=== PATIENT | female | born 1960 | race Caucasian/White ===

== ENCOUNTER 2018-12-30 08:03 | Inpatient (IN) | payer OTHER ==
[2018-12-30] MEDS ORDERED: ASPIRIN 325 MG TABLET PO ONE (09:45)
--- NOTE | 2018-12-30 10:03 | PDOC ---
History of Present Illness - General Chief Complaint: Chest Pain Stated Complaint: CHEST PAIN Time Seen by Provider: 12/30/18 08:58 - History of Present Illness Initial Comments: 12/30/18 09:58 58 F with h/o DM, HTN, HLD, COPD (active smoker), opiate dependence on methadone , presenting to ED with 1 day of midsternal chest pain. Pt states that she had an argument with a family member this morning. She subsequently developed a pressure-like pain in the middle of her chest. Pain is non-radiating, non- pleuritic. She does endorse worsening of the pain with activity. Denies any new leg swelling. No recent travel/immobilization. No h/o DVT/PE. Past History - Past Medical History Allergies/Adverse Reactions: Allergies Allergy/AdvReac Type Severity Reaction Status Date / Time No Known Allergies Allergy Verified 12/30/18 08:16 Home Medications: Ambulatory Orders NK [No Known Home Medication] 05/22/18 COPD: Yes Diabetes: Yes HTN: Yes Hypercholesterolemia: Yes - Surgical History Appendectomy: Yes - Suicide/Smoking/Psychosocial Hx Smoking History: Current every day smoker Have you smoked in the past 12 months: Yes Number of Cigarettes Smoked Daily: 8 Information on smoking cessation initiated: Yes Hx Alcohol Use: No Drug/Substance Use Hx: No Substance Use Type: Heroin Review of Systems - Review of Systems Comments:: 12/30/18 09:59 GENERAL/CONSTITUTIONAL: No fever or chills. No weakness. HEAD, EYES, EARS, NOSE AND THROAT: No change in vision. No ear pain or discharge. No sore throat. CARDIOVASCULAR: + chest pain, no shortness of breath, no loss of consciousness RESPIRATORY: No cough, wheezing, or hemoptysis. GASTROINTESTINAL: No nausea, vomiting, diarrhea or constipation. GENITOURINARY: No dysuria, frequency, or change in urination. MUSCULOSKELETAL: No joint or muscle swelling or pain. No neck or back pain. SKIN: No rash NEUROLOGIC: No vertigo, no change in strength/sensation. ENDOCRINE: No increased thirst. No abnormal weight change. HEMATOLOGIC/LYMPHATIC: No anemia, easy bleeding, or history of blood clots. ALLERGIC/IMMUNOLOGIC: No hives or skin allergy. *Physical Exam - Vital Signs Last Vital Signs Temp Pulse Resp BP Pulse Ox 97.5 F L 61 22 H 135/79 97 12/30/18 08:16 12/30/18 08:16 12/30/18 08:16 12/30/18 08:16 12/30/18 08:16 Heart Score/ECG Review - History History: Slightly suspicious - Electrocardiogram EKG: Non specific repolarization disturbance - Age Age: 45-65 - Risk Factors Risk Factors Heart Score: Yes Hx Hypercholesterolemia, Yes Hx Hypertension, Yes Hx Diabetes, Yes Smoking History Based on the list above the patient has:: >/=3 risk factors or Hx atherosclerotic disease - Troponin Troponin: </= normal limit - Score Heart Score - Total: 4 - ECG Impressions Comment:: 12/30/18 10:00 NSR, no NILESH/STDs, TWI in V1-V2, Q waves in V1-V3, rate 59 ED Treatment Course - LABORATORY CBC & Chemistry Diagram: 12/30/18 10:04 12/30/18 10:04 - ADDITIONAL ORDERS Additional order review: Laboratory Results 12/30/18 12/30/18 12/30/18 10:04 10:04 10:04 PT with INR 11.60 INR 0.98 PTT (Actin FS) 35.7 Sodium 138 Potassium 4.3 Chloride 102 Carbon Dioxide 32 Anion Gap 4 L BUN 14 Creatinine 0.8 Creat Clearance w eGFR 73.67 Random Glucose 117 H Calcium 8.7 Total Bilirubin 0.5 AST 27 ALT 19 Alkaline Phosphatase 110 Creatine Kinase Troponin I B-Natriuretic Peptide 65.9 Total Protein 7.2 Albumin 3.5 12/30/18 10:04 PT with INR INR PTT (Actin FS) Sodium Potassium Chloride Carbon Dioxide Anion Gap BUN Creatinine Creat Clearance w eGFR Random Glucose Calcium Total Bilirubin AST ALT Alkaline Phosphatase Creatine Kinase 142 Troponin I 0.03 B-Natriuretic Peptide Total Protein Albumin 12/30/18 10:04 RBC 4.39 MCV 96.0 MCHC 34.8 RDW 12.6 MPV 8.4 Neutrophils % 51.1 Lymphocytes % 38.0 Monocytes % 7.8 Eosinophils % 2.3 Basophils % 0.8 - RADIOLOGY Radiology Studies Ordered: Category Date Time Status CHEST PA & LAT [RAD] Stat Radiology 12/30/18 09:43 Completed - Medications Given in the ED: ED Medications Discontinued Medications Generic Name Dose Route Start Last Admin Trade Name Freq PRN Reason Stop Dose Admin Aspirin 325 mg 12/30/18 09:45 03/26/19 10:23 Asa - PO 12/30/18 09:46 325 mg ONCE ONE Administration Medical Decision Making - Medical Decision Making 12/30/18 10:03 58 F with exertional chest pain. EKG shows septal Q waves and TWIs. No risk factors or clinical signs of DVT/PE. Equal pulses, low suspicion for dissection. - Labs, serial trops - CXR - Aspirin 12/30/18 11:03 Labs wnl CXR clear First trop negative Will admit tele obs for ACS r/o 12/30/18 11:16 Pt admitted to hospitalist *DC/Admit/Observation/Transfer Diagnosis at time of Disposition: Chest pain - Discharge Dispostion Decision to Admit order: Yes - Referrals Referrals: Sol Denney MD [Primary Care Provider] - - Patient Instructions - Post Discharge Activity - Attestations Physician Attestion: 12/30/18 11:17 I, Dr. Faizan Vivas MD, attest that this document has been prepared under my direction and personally reviewed by me in its entirety. I further attest, that it accurately reflects all work, treatment, procedures and medical decision -making performed by me.
[2018-12-30 10:12] LABS: BASO % 0.8 % (0-2.0); EOS % 2.3 % (0-4.5); HEMATOCRIT 42.1 % (32.4-45.2); HEMOGLOBIN 14.6 GM/dL (10.7-15.3); MCH 33.4 pg (25.7-33.7); MCHC 34.8 g/dl (32.0-36.0); MEAN PLT VOLUME 8.4 fl (7.5-11.1); MONO % 7.8 % (3.8-10.2); NEUT % 51.1 % (42.8-82.8); PLATELET COUNT 148 K/MM3 (134-434); RBC 4.39 M/mm3 (3.60-5.2); RDW 12.6 % (11.6-15.6); WHITE BLOOD COUNT 5.3 K/mm3 (4.0-10.0)
[2018-12-30] MEDS ORDERED: ASPIRIN 325 MG TABLET ONE (10:16)
[2018-12-30 10:26] LABS: INR 0.98 (0.83-1.09); PROTHROMBIN TIME (PATIENT) 11.6 SEC (9.7-13.0)
[2018-12-30 10:28] LABS: ACTIVATED PTT 35.7 SECONDS (25.2-36.5)
[2018-12-30 10:48] LABS: ALBUMIN 3.5 g/dl (3.4-5.0); ALK PHOS 110 U/L (45-117); ANION GAP 4 MMOL/L (8-16); BILIRUBIN,TOTAL 0.5 mg/dL (0.2-1); BLOOD UREA NITROGEN 14 mg/dL (7-18); CALCIUM 8.7 mg/dL (8.5-10.1); CHLORIDE 102 mmol/L (98-107); CO2 32 mmol/L (21-32); CREATININE 0.8 mg/dL (0.55-1.3); GLUCOSE,RANDOM 117 mg/dL (74-106); POTASSIUM 4.3 mmol/L (3.5-5.1); SGOT/AST 27 U/L (15-37); SGPT/ALT 19 U/L (13-61); SODIUM 138 mmol/L (136-145); TOT PROT 7.2 g/dl (6.4-8.2)
--- NOTE | 2018-12-30 11:23 | HP ---
CHIEF COMPLAINT:chest pain. PCP: HISTORY OF PRESENT ILLNESS: 58 yo F with PMhx of HTN, HLD, DM 2, and current smoker presents to ER with chest pain. She describes intermittent non-radiating substernal chest pain that lasted for about and hour and resolved on its own. At the time of chest pain she was arguing with her and was worsened with activity. She does not have history of CA or stress test in past. She saw a play writer several years ago but can not recall the name.Pain was not associated with diaphoresis. Never had this pain before this episode. She was previously on insulin for her DM but has not taken any medication for it for over a year because she states that her A1c returned to normal. She was also previously on Lisinopril and Lipitor but also has not taken them in over a year. At this time she denies CP, ARMAS,SOB, palpitations, abdominal pain, nausea or vomiting. ER course was notable for: (1)ASA 325 given. (2)EKG showed NSR, no NILESH/STDs, TWI in V1-V2, Q waves in V1-V3, rate 59 (3)Troponin I (-) x 1 Recent Travel: Denies PAST MEDICAL HISTORY: HTN, HLD, DM 2, and current smoker PAST SURGICAL HISTORY: appendectomy Social History: Smokin-10 cigs/day Alcohol:denies Drugs: denies Family History: NO histrory of sudden cardiac in family. Allergies No Known Allergies Allergy (Verified 12/30/18 08:16) HOME MEDICATIONS: Home Medications Medication Instructions Recorded NK [No Known Home Medication] 05/22/18 REVIEW OF SYSTEMS CONSTITUTIONAL: Absent: fever, chills, diaphoresis, generalized weakness, malaise, loss of appetite, weight change HEENT: Absent: rhinorrhea, nasal congestion, throat pain, throat swelling, difficulty swallowing, mouth swelling, ear pain, eye pain, visual changes CARDIOVASCULAR: chest pain Absent: , syncope, palpitations, irregular heart rate, lightheadedness, peripheral edema RESPIRATORY: Absent: cough, shortness of breath, dyspnea with exertion, orthopnea, wheezing, stridor, hemoptysis GASTROINTESTINAL: Absent: abdominal pain, abdominal distension, nausea, vomiting, diarrhea, constipation, melena, hematochezia GENITOURINARY: Absent: dysuria, frequency, urgency, hesitancy, hematuria, flank pain, genital pain MUSCULOSKELETAL: Absent: myalgia, arthralgia, joint swelling, back pain, neck pain SKIN: Absent: rash, itching, pallor HEMATOLOGIC/IMMUNOLOGIC: Absent: easy bleeding, easy bruising, lymphadenopathy, frequent infections ENDOCRINE: Absent: unexplained weight gain, unexplained weight loss, heat intolerance, cold intolerance NEUROLOGIC: Absent: headache, focal weakness or paresthesias, dizziness, unsteady gait, seizure, mental status changes, bladder or bowel incontinence PSYCHIATRIC: Absent: anxiety, depression, suicidal or homicidal ideation, hallucinations. PHYSICAL EXAMINATION Vital Signs - 24 hr 12/30/18 08:16 Temperature 97.5 F L Pulse Rate 61 Respiratory 22 H Rate Blood Pressure 135/79 O2 Sat by Pulse 97 Oximetry (%) GENERAL: AAOx3 NAD HEAD: NCAT EYES: PERRLA, EOMI, sclera anicteric, conjunctiva clear. No lid lag. EARS, NOSE, THROAT: Moist mucous membranes. NECK: nl ROM supple without lymphadenopathy, JVD, or masses. LUNGS: CTAB. No wheezes, and no crackles. No accessory muscle use. HEART: RRR, normal S1 and S2 without murmur, rub or gallop. ABDOMEN: Soft,obese, nontender, not distended, normoactive bowel sounds, no guarding, no rebound, no masses. No hepatomegaly or splenomegaly. MUSCULOSKELETAL: Normal range of motion at all joints. No bony deformities or tenderness. No CVA tenderness. LOWER EXTREMITIES: 2+ pulses, warm, well-perfused. No calf tenderness. No peripheral edema. NEUROLOGICAL: Cranial nerves II-XII intact. Normal speech. PSYCHIATRIC: Cooperative. Good eye contact. Appropriate mood and affect. SKIN: Warm, dry, normal turgor, no rashes or lesions noted, normal capillary refill. Laboratory Results - last 24 hr 12/30/18 12/30/18 12/30/18 10:04 10:04 10:04 WBC 5.3 RBC 4.39 Hgb 14.6 Hct 42.1 MCV 96.0 MCH 33.4 MCHC 34.8 RDW 12.6 Plt Count 148 MPV 8.4 Absolute Neuts (auto) 2.7 Neutrophils % 51.1 Lymphocytes % 38.0 Monocytes % 7.8 Eosinophils % 2.3 Basophils % 0.8 Nucleated RBC % 0 PT with INR 11.60 INR 0.98 PTT (Actin FS) 35.7 Sodium Potassium Chloride Carbon Dioxide Anion Gap BUN Creatinine Creat Clearance w eGFR Random Glucose Calcium Total Bilirubin AST ALT Alkaline Phosphatase Creatine Kinase 142 Troponin I 0.03 B-Natriuretic Peptide Total Protein Albumin 12/30/18 12/30/18 10:04 10:04 WBC RBC Hgb Hct MCV MCH MCHC RDW Plt Count MPV Absolute Neuts (auto) Neutrophils % Lymphocytes % Monocytes % Eosinophils % Basophils % Nucleated RBC % PT with INR INR PTT (Actin FS) Sodium 138 Potassium 4.3 Chloride 102 Carbon Dioxide 32 Anion Gap 4 L BUN 14 Creatinine 0.8 Creat Clearance w eGFR 73.67 Random Glucose 117 H Calcium 8.7 Total Bilirubin 0.5 AST 27 ALT 19 Alkaline Phosphatase 110 Creatine Kinase Troponin I B-Natriuretic Peptide 65.9 Total Protein 7.2 Albumin 3.5 ASSESSMENT/PLAN: 58 yo F with PMhx of HTN, HLD, DM 2, and current smoker presents to ER with chest pain placed on observation for rule out ACS. Problem List - Problem (1) Chest pain Assessment/Plan: intermediate pre-test probability. * Place on observation * Trend trops * Cardiology consult * Echo pending. * nuclear stress test. * consider BB (2) HTN (hypertension) Assessment/Plan: she was previously on Lisinopril 5mg PO daily. (3) HLD (hyperlipidemia) Assessment/Plan: Restart Statin * Lipid profile sent. (4) DM type 2 (diabetes mellitus, type 2) Assessment/Plan: She was previously on insulin . * No current home meds. * ADA diet * BGM TIDAC * ISS TIDAC * diabetic counseling. * HgbA1C (5) Tobacco use Assessment/Plan: Nicoderm patch. * Counseled on importance of smoking cessation. * given different option to help quit. (6) DVT prophylaxis Assessment/Plan: Lovenox 40 mg SQ daily Visit type - Emergency Visit Emergency Visit: Yes ED Registration Date: 12/30/18 Care time: The patient presented to the Emergency Department on the above date and was hospitalized for further evaluation of their emergent condition. - New Patient This patient is new to me today: Yes Date on this admission: 12/31/18 - Critical Care Critical Care patient: No
[2018-12-30 13:30] LABS: CHOLESTEROL 187 mg/dL (50-200); HDL CHOLESTEROL 70 mg/dL (40-60); TRIGLYCERIDES 79 mg/dL (0-150)
--- NOTE | 2018-12-30 16:13 | ECHO ---
Name: DARIEN NOVA Exam:Adult Echocardiogram Study Date: 12/30/2018 02:22 PM Age: 58 yrs Reason For Study: LV Function Height: 69 in Weight: 247 lb BSA: 2.3 m2 MMode/2D Measurements & Calculations IVSd: 0.80 cm Ao root diam: 3.1 cm LVIDd: 5.1 cm LA dimension: 3.7 cm LVIDs: 3.7 cm LVPWd: 0.82 cm EDV(Teich): 121.7 ml LVOT diam: 2.2 cm ESV(Teich): 59.8 ml TAPSE: 2.7 cm Doppler Measurements & Calculations MV E max maxwell: 63.2 cm/sec Ao V2 max: 123.4 cm/sec MV A max maxwell: 80.0 cm/sec Ao max P.1 mmHg MV E/A: 0.79 Ao V2 mean: 92.5 cm/sec MV dec time: 0.26 sec Ao mean P.7 mmHg Ao V2 VTI: 29.3 cm SHIV(I,D): 1.9 cm2 SHIV(V,D): 2.3 cm2 LV V1 max P.2 mmHg SV(LVOT): 56.4 ml LV V1 mean P.99 mmHg LV V1 max: 73.4 cm/sec LV V1 mean: 46.9 cm/sec LV V1 VTI: 14.7 cm TR max maxwell: 205.0 cm/sec Med Peak E' Maxwell: 6.3 cm/sec TR max P.8 mmHg Med E/e': 10.0 Lat Peak E' Maxwell: 11.2 cm/sec Lat E/e': 5.6 Procedure The study was technically difficult with many images being suboptimal in quality. Left Ventricle The left ventricle is grossly normal size. Left ventricular systolic function is grossly normal. E/A reversal consistent with but not diagnostic of poor LV compliance. Right Ventricle The right ventricle is grossly normal size. The right ventricular systolic function is grossly normal . Atria Normal left and right atrial size and function. Mitral Valve There is mild mitral annular calcification. Tricuspid Valve The tricuspid valve is not well visualized. Aortic Valve There is moderate aortic sclerosis.;. Mild valvular aortic stenosis. The calculated aortic valve area using the continuity equation is 1.9 cm2. The peak gradient is 6.1 mmHg and mean gradient is 3.7 mmHg. Pulmonic Valve The pulmonic valve is not well visualized. Great Vessels The aortic root is normal size. Pericardium/Pleura There is no pericardial effusion. Interpretation Summary The study was technically difficult with many images being suboptimal in quality. The left ventricle is grossly normal size. Left ventricular systolic function is grossly normal. The right ventricle is grossly normal size. The right ventricular systolic function is grossly normal . Normal left and right atrial size and function. There is moderate aortic sclerosis.; Mild valvular aortic stenosis. The calculated aortic valve area using the continuity equation is 1.9 cm2. The peak gradient is 6.1 mmHg and mean gradient is 3.7 mmHg. There is mild mitral annular calcification. MD Danae Lewis 12/30/2018 04:12 PM
[2018-12-30] MEDS ORDERED: INSULIN SLIDING SCALE (NOVOLOG) 1 VIAL SQ SCH (16:30)
[2018-12-30] MEDS: INSULIN SLIDING SCALE (NOVOLOG) 1 VIAL SQ SCH (17:14)
--- NOTE | 2018-12-30 18:20 | PN ---
Teaching Attending Note Name of Resident: Armando Haynes ATTENDING PHYSICIAN STATEMENT I saw and evaluated the patient. I reviewed the resident's note and discussed the case with the resident. I agree with the resident's findings and plan as documented. SUBJECTIVE: This is a 58 year old woman with a history of HTN, hyperlipidemia, type 2 DM who comes to the ED complaining of chest pain. The pain started while arguing with her . It was worse with activity. It was substernal, did not radiate, and was not associated with SOB, diaphoresis, palpitations. She reports that it was intermittent over about an hour. It resolved spontaneously. She reports that she has been off all of her meds for over a year. OBJECTIVE: Vital Signs Period Temp Pulse Resp BP Sys/Ayoub Pulse Ox Last 24 Hr 97.5 F 61-71 18-22 132-135/74-79 97-99 HEART: S1S2, RRR LUNGS: Clear ABDOMEN: Obese, soft, non-tender, non-distended, normal BS EXTREMITIES: No edema Laboratory Tests 12/30/18 12/30/18 12/30/18 10:00 10:04 10:04 WBC 5.3 RBC 4.39 Hgb 14.6 Hct 42.1 MCV 96.0 MCH 33.4 MCHC 34.8 RDW 12.6 Plt Count 148 MPV 8.4 Absolute Neuts (auto) 2.7 Neutrophils % 51.1 Lymphocytes % 38.0 Monocytes % 7.8 Eosinophils % 2.3 Basophils % 0.8 Nucleated RBC % 0 PT with INR INR PTT (Actin FS) Sodium Potassium Chloride Carbon Dioxide Anion Gap BUN Creatinine Creat Clearance w eGFR Random Glucose Hemoglobin A1c % 5.8 Calcium Total Bilirubin AST ALT Alkaline Phosphatase Creatine Kinase 142 Troponin I 0.03 B-Natriuretic Peptide Total Protein Albumin Triglycerides Cholesterol Total LDL Cholesterol HDL Cholesterol 12/30/18 12/30/18 12/30/18 10:04 10:04 10:04 WBC RBC Hgb Hct MCV MCH MCHC RDW Plt Count MPV Absolute Neuts (auto) Neutrophils % Lymphocytes % Monocytes % Eosinophils % Basophils % Nucleated RBC % PT with INR 11.60 INR 0.98 PTT (Actin FS) 35.7 Sodium 138 Potassium 4.3 Chloride 102 Carbon Dioxide 32 Anion Gap 4 L BUN 14 Creatinine 0.8 Creat Clearance w eGFR 73.67 Random Glucose 117 H Hemoglobin A1c % Calcium 8.7 Total Bilirubin 0.5 AST 27 ALT 19 Alkaline Phosphatase 110 Creatine Kinase Troponin I B-Natriuretic Peptide 65.9 Total Protein 7.2 Albumin 3.5 Triglycerides 79 Cholesterol 187 Total LDL Cholesterol 103 H HDL Cholesterol 70 H 12/30/18 17:00 WBC RBC Hgb Hct MCV MCH MCHC RDW Plt Count MPV Absolute Neuts (auto) Neutrophils % Lymphocytes % Monocytes % Eosinophils % Basophils % Nucleated RBC % PT with INR INR PTT (Actin FS) Sodium Potassium Chloride Carbon Dioxide Anion Gap BUN Creatinine Creat Clearance w eGFR Random Glucose Hemoglobin A1c % Calcium Total Bilirubin AST ALT Alkaline Phosphatase Creatine Kinase Troponin I 0.33 H B-Natriuretic Peptide Total Protein Albumin Triglycerides Cholesterol Total LDL Cholesterol HDL Cholesterol Home Medications Medication Instructions Recorded NK [No Known Home Medication] 05/22/18 ASSESSMENT AND PLAN: This is a 58 year old woman with a history of HTN, hyperlipidemia, type 2 DM who presented to the ED with chest pain. 1. Chest pain - Patient has multiple risk factors - Observe on telemetry - Start aspirin, Lipitor - Serial troponins - Echocardiogram - Cardiology consult - Stress test 2. HTN - Restart lisinopril 3. Hyperlipidemia - Check lipid profile - Start Lipitor 4. Type 2 DM - Check HgbA1c - Fingersticks with Novolog sliding scale - Restart lisinopril 5. Nicotine dependence - Nicotine patch 6. Obesity with BMI 36.5
[2018-12-30] MEDS ORDERED: ATORVASTATIN CA 10 MG TABLET (FP) ONE (21:19)
--- NOTE | 2018-12-30 21:45 | CON.CARD ---
Consult Consult Specialty:: cardiology Reason for Consultation:: chest pain - History of Present Illness Chief Complaint: Pt A&Ox3; had chest pressure for more than an hour, but is now asymptomatic. History of Present Illness: 58 F with h/o DM, HTN, HLD, COPD (active smoker), opiate dependence on methadone , headaches, obesity, sedentary lifestyle, presenting to ED with 1 day of midsternal chest pain. Pt states that she had an argument with a family member this morning. She subsequently developed a moderate pressure-like pain in the middle of her chest. Pain is non-radiating, non-pleuritic. She does endorse worsening of the pain with activity. Denies any new leg swelling. No recent travel/immobilization. No h/o DVT/PE. Pt says she had DM, HTN, and hyperlipidemia in the past, but has been able to come off all medications. - History Source History Provided By: Patient, Medical Record Limitations to Obtaining History: No Limitations - Past Medical History Cardio/Vascular: Yes: HTN, Hyperlipdemia Reproductive: Yes: Postmenopausal ...: No - Alcohol/Substance Use Hx Alcohol Use: No - Smoking History Smoking history: Current every day smoker Have you smoked in the past 12 months: Yes Aproximately how many cigarettes per day: 8 Home Medications - Allergies Allergies/Adverse Reactions: Allergies Allergy/AdvReac Type Severity Reaction Status Date / Time No Known Allergies Allergy Verified 12/30/18 08:16 - Home Medications Home Medications: Ambulatory Orders Methadone [Dolophine -] 120 mg PO DAILY 12/30/18 Family Disease History - Family Disease History Family History: Denies Review of Systems - Review of Systems Constitutional: reports: No Symptoms Eyes: reports: No Symptoms HENT: reports: No Symptoms Neck: reports: No Symptoms Cardiovascular: reports: Chest Pain Respiratory: reports: No Symptoms Gastrointestinal: reports: No Symptoms Genitourinary: reports: No Symptoms Breasts: reports: No Symptoms Reported Musculoskeletal: reports: No Symptoms Integumentary: reports: No Symptoms Neurological: reports: No Symptoms Endocrine: reports: No Symptoms Hematology/Lymphatic: reports: No Symptoms Psychiatric: reports: No Symptoms - Risk Factors Known Risk Factors: Yes: Age, Hypercholesterolemia, Hypertension, Physical Inactivity, Other (obesity) Vital Signs: Vital Signs Temperature 98 F 12/30/18 19:39 Pulse Rate 68 12/30/18 19:39 Respiratory Rate 18 12/30/18 19:39 Blood Pressure 121/74 12/30/18 19:39 O2 Sat by Pulse Oximetry (%) 100 12/30/18 19:39 - Other Data Labs, Other Data: CBC, BMP 12/30/18 10:04 12/30/18 10:04 INR, PTT INR 0.98 (0.83-1.09) 12/30/18 10:04 Troponin, BNP 12/30/18 12/30/18 12/30/18 10:04 10:04 17:00 Troponin I 0.03 0.33 H B-Natriuretic Peptide 65.9 Troponin, BNP 12/30/18 12/30/18 12/30/18 10:04 10:04 17:00 Troponin I 0.03 0.33 H B-Natriuretic Peptide 65.9 Ejection Fraction %: LVEF > or = 40 % Imaging - Results Chest X-ray: Image Reviewed EKG: Pending, Image Reviewed (sinus bradycardia; cannot r/o septal infarct) Problem List - Problems (1) Obesity Assessment/Plan: Pt has been changing diet, and says her blood sugar and BP have improved, but has not lost much weight. She did weigh 140 lbs at 20 yrs old. Code(s): E66.9 - OBESITY, UNSPECIFIED (2) Sedentary lifestyle Code(s): Z91.89 - OT PERSONAL RISK FACTORS, NOT ELSEWHERE CLASSIFIED (3) [place] cardiac risk >20% in next 10 years Assessment/Plan: F/u tNI and EKGs serially. If CK does not increase significantly, will do stress MIBI in am. Addendum: TNI noted to increase from 0.03 to 0.3 within seven hours. Await next level; if increasing, will add IV heparin or lovenox; stress MIBI may need to be canceled. 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
[2018-12-30] MEDS ORDERED: ATORVASTATIN CA 10 MG TABLET (FP) PO SCH (22:00)
--- NOTE | 2018-12-30 22:02 | EKG ---
Test Reason : Blood Pressure : / mmHG Vent. Rate : 059 BPM Atrial Rate : 059 BPM P-R Int : 124 ms QRS Dur : 094 ms QT Int : 478 ms P-R-T Axes : 038 019 062 degrees QTc Int : 473 ms POOR DATA QUALITY, INTERPRETATION MAY BE ADVERSELY AFFECTED SINUS BRADYCARDIA WITH OCCASIONAL PREMATURE VENTRICULAR COMPLEXES LOW VOLTAGE QRS CANNOT RULE OUT ANTERIOR INFARCT , AGE UNDETERMINED ABNORMAL ECG NO PREVIOUS ECGS AVAILABLE Confirmed by MD CARI, DEBBIE ([id number]) on 12/30/2018 10:01:41 PM Referred By: Confirmed By:DEBBIE ALCALA MD
[2018-12-31] MEDS ORDERED: ENOXAPARIN NA (PORCINE) 100 MG/1 ML DISP.SYRIN SQ ONE (00:06)
[2018-12-31] MEDS ORDERED: ENOXAPARIN NA (PORCINE) 30 MG/0.3 ML DISP.SYRIN SQ ONE (00:08)
[2018-12-31] MEDS: ENOXAPARIN NA (PORCINE) 120 MG/0.8 ML DISP.SYRIN SQ SCH ×3 (00:34→21:20)
[2018-12-31 05:53] LABS: BASO % 0.8 % (0-2.0); EOS % 2.8 % (0-4.5); HEMATOCRIT 40.4 % (32.4-45.2); HEMOGLOBIN 13.9 GM/dL (10.7-15.3); LYMPH % 40.6 % (8-40); MCH 32.6 pg (25.7-33.7); MCHC 34.3 g/dl (32.0-36.0); MEAN CELL VOLUME 94.9 fl (80-96); MEAN PLT VOLUME 8.5 fl (7.5-11.1); MONO % 6.6 % (3.8-10.2); NEUT % 49.2 % (42.8-82.8); PLATELET COUNT 149 K/MM3 (134-434); RBC 4.25 M/mm3 (3.60-5.2); RDW 12.8 % (11.6-15.6); WHITE BLOOD COUNT 5.4 K/mm3 (4.0-10.0)
[2018-12-31 06:14] LABS: ALBUMIN 3.3 g/dl (3.4-5.0); ALK PHOS 94 U/L (45-117); ANION GAP 4 MMOL/L (8-16); BILIRUBIN,TOTAL 0.6 mg/dL (0.2-1); BLOOD UREA NITROGEN 15 mg/dL (7-18); CALCIUM 8.6 mg/dL (8.5-10.1); CHLORIDE 105 mmol/L (98-107); CO2 29 mmol/L (21-32); CREATININE 0.8 mg/dL (0.55-1.3); GLUCOSE,RANDOM 94 mg/dL (74-106); MAGNESIUM 2.2 mg/dL (1.8-2.4); PHOSPHOROUS 3.8 mg/dL (2.5-4.9); POTASSIUM 3.9 mmol/L (3.5-5.1); SGOT/AST 24 U/L (15-37); SGPT/ALT 18 U/L (13-61); SODIUM 138 mmol/L (136-145); TOT PROT 6.8 g/dl (6.4-8.2)
[2018-12-31] MEDS: INSULIN SLIDING SCALE (NOVOLOG) 1 VIAL SQ SCH ×3 (06:34→16:53)
--- NOTE | 2018-12-31 08:16 | PN ---
Progress Note, Physician History of Present Illness: 58 F with h/o DM, HTN, HLD, COPD (active smoker), opiate dependence on methadone , obesity, sedentary lifestyle, presenting to ED with 1 day of midsternal chest pain. Pt states that she had an argument with a family member this morning. She subsequently developed a moderate pressure-like pain in the middle of her chest. Pain is non-radiating, non-pleuritic. She does endorse worsening of the pain with activity. Denies any new leg swelling. No recent travel/ immobilization. No h/o DVT/PE. Pt says she had DM, HTN, and hyperlipidemia in the past, but has been able to come off all medications. - Current Medication List Current Medications: Active Medications Aspirin (Asa -) 81 mg PO DAILY [facility] Atorvastatin Calcium (Lipitor -) 10 mg PO HS [facility] Last Admin: 12/30/18 22:26 Dose: 10 mg Enoxaparin Sodium (Lovenox -) 110 mg SQ BID [facility] Last Admin: 12/31/18 00:34 Dose: 110 mg Insulin Aspart (Novolog Vial Sliding Scale -) 1 vial SQ TIDAC [facility]; Protocol Last Admin: 12/31/18 06:34 Dose: Not Given Lisinopril (Prinivil) 5 mg PO DAILY [facility] Nicotine (Nicoderm Patch -) 21 mg TD DAILY [facility] - Objective Vital Signs: Vital Signs Temperature 97.4 F L 12/31/18 05:00 Pulse Rate 75 12/31/18 05:00 Respiratory Rate 20 12/31/18 05:00 Blood Pressure 119/72 12/31/18 05:00 O2 Sat by Pulse Oximetry (%) 100 12/30/18 19:39 Labs: CBC, BMP 12/31/18 05:40 12/31/18 05:25 INR, PTT INR 0.98 (0.83-1.09) 12/30/18 10:04 Assessment/Plan Problems (1) Obesity Assessment/Plan: Pt has been changing diet, and says her blood sugar and BP have improved, but has not lost much weight. She did weigh 140 lbs at 20 yrs old. Code(s): E66.9 - OBESITY, UNSPECIFIED (2) Sedentary lifestyle Code(s): Z91.89 - OTH PERSONAL RISK FACTORS, NOT ELSEWHERE CLASSIFIED (3) [place] cardiac risk >20% in next 10 years Assessment/Plan: nonstemi cont lovenox and asa, add plavix 300 loading than 75 QD and BB will need c. cath Addendum: TNI noted to increase from 0.03 to 0.3 within seven hours. Await next level; if increasing, will add IV heparin or lovenox; stress MIBI may need to be canceled. 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
[2018-12-31] MEDS ORDERED: CLOPIDOGREL BISULFATE 300 MG TABLET PO ONE (08:30)
[2018-12-31] MEDS ORDERED: CLOPIDOGREL BISULFATE 300 MG TABLET ONE (08:33)
[2018-12-31] MEDS ORDERED: ACETAMINOPHEN 325 MG TABLET (FP) PO PRN (08:34)
[2018-12-31] MEDS ORDERED: ACETAMINOPHEN 325 MG TABLET (FP) ONE (08:57)
[2018-12-31] MEDS ORDERED: methylPREDNISolone NA SUCC 125 MG/2 ML VIAL ONE (09:27)
[2018-12-31] MEDS: ASPIRIN 81 MG CHEWABLE TABLETS PO SCH (09:37)
[2018-12-31] MEDS: NICOTINE 21 MG/24 HOURS TOPICAL PATCH TD SCH (09:38)
[2018-12-31] MEDS: LISINOPRIL 5 MG TABLET (FP) PO SCH (09:38)
[2018-12-31] MEDS ORDERED: ENOXAPARIN NA (PORCINE) 40 MG/0.4 ML DISP.SYRIN SQ SCH (10:00)
[2018-12-31] MEDS ORDERED: METOPROLOL TARTRATE 25 MG TABLET (FP) ONE (10:11)
[2018-12-31] MEDS: METOPROLOL TARTRATE 25 MG TABLET (FP) PO SCH ×2 (10:13→21:19)
--- NOTE | 2018-12-31 10:39 | EKG ---
Test Reason : Blood Pressure : / mmHG Vent. Rate : 069 BPM Atrial Rate : 069 BPM P-R Int : 164 ms QRS Dur : 098 ms QT Int : 458 ms P-R-T Axes : 048 010 069 degrees QTc Int : 490 ms NORMAL SINUS RHYTHM LOW VOLTAGE QRS PROLONGED QT ABNORMAL ECG WHEN COMPARED WITH ECG OF 30-DEC-2018 08:03, PREMATURE VENTRICULAR COMPLEXES ARE NO LONGER PRESENT Confirmed by YULIANA TOM, MARCIN ([id number]) on 12/31/2018 10:39:25 AM Referred By: Romel LEDESMA Confirmed By:MARCIN BRIDGES MD
[2018-12-31 13:09] VITALS: BMI 38.0
--- NOTE | 2018-12-31 13:33 | PN ---
Progress Note, Physician History of Present Illness: 24 HR EVENTS: -pt admitted for NSTEMI, with elevated trop -Trop 0.33>>0.46>>0.20 -pt remains chest pain free - Current Medication List Current Medications: Active Medications Acetaminophen (Tylenol -) 650 mg PO QID PRN PRN Reason: HEADACHE Last Admin: 12/31/18 09:10 Dose: 650 mg Aspirin (Asa -) 81 mg PO DAILY [facility] Last Admin: 12/31/18 09:37 Dose: 81 mg Atorvastatin Calcium (Lipitor -) 80 mg PO [facility] Clopidogrel Bisulfate (Plavix -) 75 mg PO NOW ONE Stop: 01/01/19 10:01 Enoxaparin Sodium (Lovenox -) 110 mg SQ BID [facility] Last Admin: 12/31/18 10:12 Dose: Not Given Insulin Aspart (Novolog Vial Sliding Scale -) 1 vial SQ TIDAC [facility]; Protocol Last Admin: 12/31/18 11:49 Dose: Not Given Lisinopril (Prinivil) 5 mg PO DAILY [facility] Last Admin: 12/31/18 09:38 Dose: 5 mg Metoprolol Tartrate (Lopressor -) 25 mg PO BID [facility] Last Admin: 12/31/18 10:13 Dose: 25 mg Nicotine (Nicoderm Patch -) 21 mg TD DAILY [facility] Last Admin: 12/31/18 09:38 Dose: 21 mg - Objective Vital Signs: Vital Signs Temperature 97.6 F 12/31/18 12:58 Pulse Rate 65 12/31/18 12:58 Respiratory Rate 18 12/31/18 12:58 Blood Pressure 108/66 12/31/18 12:58 O2 Sat by Pulse Oximetry (%) 100 12/30/18 19:39 Constitutional: Yes: Well Nourished, No Distress, Calm, Obese Eyes: Yes: Conjunctiva Clear, PERRL HENT: Yes: Atraumatic, Normocephalic Neck: Yes: Supple, Trachea Midline Cardiovascular: Yes: Regular Rate and Rhythm Respiratory: Yes: Regular, CTA Bilaterally Gastrointestinal: Yes: Normal Bowel Sounds, Soft, Abdomen, Obese ...Rectal Exam: Yes: Deferred Genitourinary: Yes: WNL Breast(s): Yes: WNL Musculoskeletal: Yes: WNL Extremities: Yes: WNL Edema: No Peripheral Pulses WNL: Yes Peripheral Pulses: Left Radial: 2+, Right Radial: 2+, Left Doralis Pedis: 2+, Right Dorsalis Pedis: 2+ Integumentary: Yes: WNL Neurological: Yes: Alert, Oriented ...Motor Strength: WNL Psychiatric: Yes: Alert, Oriented Labs: CBC, BMP 12/31/18 05:40 12/31/18 05:25 INR, PTT INR 0.98 (0.83-1.09) 12/30/18 10:04 TCHOL 168 LDL 100 HDL 64 TRIG 75 CK_MB 3.0 - ....Imaging Other: Report Reviewed (ECHO 12/30/2018 Impression: Suboptimal images. LV grossly normal, LV systolic function is normal. RV is grossly normal and RV systolic fxn is groslly normal. There is moderate aortic sclerosis, mild valvular aortic stenosis. Mild mitral annular calcification. Reported by Joshua Fink MD) Problem List - Problems (1) NSTEMI (non-ST elevated myocardial infarction) Assessment/Plan: Trend cardiac enzymes daily EKGs cardiology following, recommendations appreciated due to risk factors in the setting of trop leak, pt may benefit from cardiac cath lipitor increased to 80mg ASA 81mg Lovenox 110mg BID Metoprolol 25mg BID Code(s): I21.4 - NON-ST ELEVATION (NSTEMI) MYOCARDIAL INFARCTION (2) Prophylactic measure Assessment/Plan: pt ambulatory--OOB to chair continue lovenox bowel regimen with senna and colace Melatonin PRN insomnia APAP PRN fever Oxycodone PRN headache Code(s): Z29.9 - ENCOUNTER FOR PROPHYLACTIC MEASURES, UNSPECIFIED (3) DM type 2 (diabetes mellitus, type 2) Assessment/Plan: insulin SS cardiac-diabetic diet Code(s): E11.9 - TYPE 2 DIABETES MELLITUS WITHOUT COMPLICATIONS Qualifiers: Diabetes mellitus fci insulin use: with fci use Diabetes mellitus complication status: with unspecified complications Qualified Code(s) : E11.8 - Type 2 diabetes mellitus with unspecified complications; 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 (4) HLD (hyperlipidemia) Assessment/Plan: continue statin and ASA Code(s): E78.5 - HYPERLIPIDEMIA, UNSPECIFIED Qualifiers: Hyperlipidemia type: unspecified Qualified Code(s): E78.5 - Hyperlipidemia , unspecified (5) HTN (hypertension) Assessment/Plan: continue BB If pt going to cardiac cath, AM dose of ACEi should be held Code(s): I10 - ESSENTIAL (PRIMARY) HYPERTENSION Qualifiers: Hypertension type: essential hypertension Qualified Code(s): I10 - Essential (primary) hypertension (6) Tobacco dependence Assessment/Plan: nicoderm patch 21mg daily Code(s): F17.200 - NICOTINE DEPENDENCE, UNSPECIFIED, UNCOMPLICATED Impression/Plan Impression/Plan: DISPO: Full code Visit type - Emergency Visit Emergency Visit: Yes ED Registration Date: 12/30/18 Care time: The patient presented to the Emergency Department on the above date and was hospitalized for further evaluation of their emergent condition. - New Patient This patient is new to me today: Yes Date on this admission: 12/31/18 - Critical Care Critical Care patient: No - Discharge Referral Referred to [facility] Med P.C.: No
[2018-12-31] MEDS ORDERED: oxyCODONE HCL 5 MG TABLET PO PRN (14:40)
[2018-12-31] MEDS ORDERED: PT OWN MED DRAWER 7, Y5N ONE (15:22)
[2018-12-31] MEDS ORDERED: ACETAMINOPHEN/CAFFEINE/BUTALBITAL 1 TAB PO ONE (17:37)
[2018-12-31] MEDS ORDERED: MELATONIN 5 MG TABLETS PO PRN (22:00)
[2018-12-31] MEDS ORDERED: DOCUSATE SODIUM 100 MG CAPSULE (FP) PO PRN (22:00)
[2018-12-31] MEDS ORDERED: ATORVASTATIN CA 80 MG TABLET (FP) PO SCH (22:00)
[2018-12-31] MEDS ORDERED: SENNOSIDES 8.6MG TABLET (FP) PO PRN (22:00)
[2019-01-01] MEDS: INSULIN SLIDING SCALE (NOVOLOG) 1 VIAL SQ SCH ×2 (06:08→12:11)
[2019-01-01 09:26] VITALS: BP 104/64; PULSE 60; TEMP 97.8
[2019-01-01] MEDS: ASPIRIN 81 MG CHEWABLE TABLETS PO SCH (09:42)
[2019-01-01] MEDS: ENOXAPARIN NA (PORCINE) 120 MG/0.8 ML DISP.SYRIN SQ SCH (09:42)
[2019-01-01] MEDS: METOPROLOL TARTRATE 25 MG TABLET (FP) PO SCH (09:42)
[2019-01-01] MEDS: NICOTINE 21 MG/24 HOURS TOPICAL PATCH TD SCH (09:43)
[2019-01-01] MEDS: LISINOPRIL 5 MG TABLET (FP) PO SCH (09:43)
[2019-01-01] MEDS ORDERED: CLOPIDOGREL BISULFATE 75 MG TABLET (FP) PO ONE (10:00)
--- NOTE | 2019-01-01 10:13 | DS ---
Physical Exam: SUBJECTIVE: Patient seen and examined. c/o ARMAS that is typical of her migraines. did not wake up with the ARMAS. denies CP, SOB, fever, chills, N/V/C/D OBJECTIVE: Vital Signs Period Temp Pulse Resp BP Sys/Ayoub Pulse Ox Last 24 Hr 97.6 F-99.0 F 60-73 18-20 101-129/50-75 96-96 PHYSICAL EXAM GENERAL: The patient is awake, alert, and fully oriented, in no acute distress. HEAD: Normal with no signs of trauma. EYES: PERRL, extraocular movements intact, sclera anicteric, conjunctiva clear. ENT: Ears normal, nares patent, oropharynx clear without exudates, moist mucous membranes. NECK: Trachea midline, full range of motion, supple. LUNGS: Breath sounds equal, clear to auscultation bilaterally, no wheezes, no crackles, no accessory muscle use. HEART: Regular rate and rhythm, S1, S2 without murmur, rub or gallop. ABDOMEN: Soft, nontender, nondistended, normoactive bowel sounds, no guarding, no rebound, no hepatosplenomegaly, no masses. EXTREMITIES: 2+ pulses, warm, well-perfused, no edema. NEUROLOGICAL: Cranial nerves II through XII grossly intact. Normal speech, gait not observed. PSYCH: Normal mood, normal affect. SKIN: Warm, dry, normal turgor, no rashes or lesions noted. LABS Laboratory Results - last 24 hr 12/31/18 12/31/18 01/01/19 11:48 16:48 06:07 POC Glucometer 108 120 113 HOSPITAL COURSE: Date of Admission:12/30/18 Date of Discharge: 01/01/19 Admitting Diagnosis: NSTEMI Pre hospital course 58 yo F with PMhx of HTN, HLD, DM 2, and current smoker presents to ER with chest pain. She describes intermittent non-radiating substernal chest pain that lasted for about and hour and resolved on its own. At the time of chest pain she was arguing with her and was worsened with activity. She does not have history of OK or stress test in past. 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 Never had this pain before this episode. She was previously on insulin for her DM but has not taken any medication for it for over a year because she states that her A1c returned to normal. She was also previously on Lisinopril and Lipitor but also has not taken them in over a year. At this time she denies CP, ARMAS,SOB, palpitations, abdominal pain, nausea or vomiting. Subsequent hospital course Tele admission. started on full dose lovenox. trop peaked at 0.46. CP resolved. seen by cardio. was seen to have NSVT on the monitor. echo done showing normal LVSF. mild with valve area 1.9. pt was transferred out for cardiac cath. Minutes to complete discharge: 40 Discharge Summary Reason For Visit: CHEST PAIN Current Active Problems Chest pain (Acute) DM type 2 (diabetes mellitus, type 2) (Acute) DVT prophylaxis (Acute) [place] cardiac risk >20% in next 10 years (Acute) HLD (hyperlipidemia) (Acute) HTN (hypertension) (Acute) NSTEMI (non-ST elevated myocardial infarction) (Acute) Obesity (Acute) Prophylactic measure (Acute) Sedentary lifestyle (Acute) Tobacco dependence (Acute) Tobacco use (Acute) - Instructions - Home Medications Comprehensive Discharge Medication List: Ambulatory Orders Methadone [Dolophine -] 120 mg PO DAILY 12/30/18 - Discharge Referral Referred to [facility] Med P.C.: No
--- NOTE | 2019-01-01 11:38 | PN ---
Progress Note, Physician Chief Complaint: Pt A&Ox3; asymptomatic except for mild headache. History of Present Illness: 58 white arturo with h/o DM, HTN, HLD, COPD (active smoker), opiate dependence on methadone, headaches, obesity, sedentary lifestyle,anxiety, presenting to ED with 1 day of midsternal chest pain. Pt states that she had an argument with a family member this morning. She subsequently developed a moderate pressure-like pain in the middle of her chest. Pain is non-radiating, non-pleuritic. She does endorse worsening of the pain with activity. Denies any new leg swelling. No recent travel/immobilization. No h/o DVT/PE. Pt says she had DM, HTN, and hyperlipidemia in the past, but has been able to come off all medications. - Current Medication List Current Medications: Active Medications Acetaminophen (Tylenol -) 650 mg PO QID PRN PRN Reason: HEADACHE Last Admin: 12/31/18 09:10 Dose: 650 mg Acetaminophen/Butalbital/Caffeine (Fioricet -) 1 tablet PO ONCE ONE Stop: 01/01/19 11:24 Aspirin (Asa -) 81 mg PO DAILY [facility] Last Admin: 01/01/19 09:42 Dose: 81 mg Atorvastatin Calcium (Lipitor -) 80 mg PO HS [facility] Last Admin: 12/31/18 21:19 Dose: 80 mg Docusate Sodium (Colace -) 100 mg PO Q8H PRN PRN Reason: CONSTIPATION Enoxaparin Sodium (Lovenox -) 110 mg SQ BID [facility] Last Admin: 01/01/19 09:42 Dose: 110 mg Insulin Aspart (Novolog Vial Sliding Scale -) 1 vial SQ TIDAC [facility]; Protocol Last Admin: 01/01/19 06:08 Dose: Not Given Lisinopril (Prinivil) 5 mg PO DAILY [facility] Last Admin: 01/01/19 09:43 Dose: 5 mg Melatonin (Melatonin) 5 mg PO HS PRN PRN Reason: INSOMNIA Last Admin: 12/31/18 21:20 Dose: 5 mg Metoprolol Tartrate (Lopressor -) 25 mg PO BID [facility] Last Admin: 01/01/19 09:42 Dose: 25 mg Nicotine (Nicoderm Patch -) 21 mg TD DAILY [facility] Last Admin: 01/01/19 09:43 Dose: 21 mg Oxycodone HCl (Roxicodone -) 5 mg PO Q6H PRN PRN Reason: PAIN LEVEL 6-10 Last Admin: 12/31/18 15:23 Dose: 5 mg Senna (Senna -) 2 tab PO HS PRN PRN Reason: CONSTIPATION - Objective Vital Signs: Vital Signs Temperature 97.8 F 01/01/19 09:25 Pulse Rate 60 01/01/19 09:25 Respiratory Rate 20 01/01/19 09:25 Blood Pressure 104/64 01/01/19 09:25 O2 Sat by Pulse Oximetry (%) 95 01/01/19 09:00 Constitutional: Yes: Calm Eyes: Yes: WNL HENT: Yes: WNL Neck: Yes: WNL Cardiovascular: Yes: WNL Respiratory: Yes: WNL Gastrointestinal: Yes: WNL ...Rectal Exam: Yes: Deferred Genitourinary: No: Anuria Breast(s): Yes: WNL Musculoskeletal: Yes: WNL Extremities: Yes: WNL Edema: No Peripheral Pulses WNL: Yes Integumentary: Yes: WNL Neurological: Yes: WNL ...Motor Strength: WNL Psychiatric: Yes: WNL Labs: CBC, BMP 12/31/18 05:40 12/31/18 05:25 INR, PTT INR 0.98 (0.83-1.09) 12/30/18 10:04 - ....Imaging EKG: Image Reviewed Other: Image Reviewed (telemetry: NSR;) Problem List - Problems (1) Obesity Assessment/Plan: Pt has been changing diet, and says her blood sugar and BP have improved, but has not lost much weight. She did weigh 140 lbs at 20 yrs old. Code(s): E66.9 - OBESITY, UNSPECIFIED (2) Sedentary lifestyle Code(s): Z91.89 - OT PERSONAL RISK FACTORS, NOT ELSEWHERE CLASSIFIED (3) [place] cardiac risk >20% in next 10 years Assessment/Plan: TNI maximum 0.45; now 0.2 Pt for coronary angiogram [facility] at [facility]. Code(s): Z91.89 - OTH PERSONAL RISK FACTORS, NOT ELSEWHERE CLASSIFIED (4) Chest pain Code(s): R07.9 - CHEST PAIN, UNSPECIFIED Qualifiers: Chest pain type: unspecified Qualified Code(s): R07.9 - Chest pain, unspecified (5) DM type 2 (diabetes mellitus, type 2) Code(s): E11.9 - TYPE 2 DIABETES MELLITUS WITHOUT COMPLICATIONS Qualifiers: Diabetes mellitus manager intermediate insulin use: with manager intermediate use Diabetes mellitus complication status: with unspecified complications Qualified Code(s) : E11.8 - Type 2 diabetes mellitus with unspecified complications; Z79.4 - supervisor intermediates (current) use of insulin (6) HLD (hyperlipidemia) Code(s): E78.5 - HYPERLIPIDEMIA, UNSPECIFIED Qualifiers: Hyperlipidemia type: unspecified Qualified Code(s): E78.5 - Hyperlipidemia , unspecified (7) HTN (hypertension) Code(s): I10 - ESSENTIAL (PRIMARY) HYPERTENSION Qualifiers: Hypertension type: essential hypertension Qualified Code(s): I10 - Essential (primary) hypertension (8) Tobacco use Code(s): Z72.0 - TOBACCO USE
[2019-01-01] MEDS ORDERED: ACETAMINOPHEN/CAFFEINE/BUTALBITAL 1 TAB PO ONE (12:30)
== END 2019-01-01 14:36 | disposition short-term general hospital (02) | DRG 190 ==
LOC: JER 08:03 → JERBED 11:18 → J4W 12-31 12:16 → OBSVTOIN 01-01 10:09
PROVIDERS: ADMIT Internal Medicine; ATTEND Internal Medicine
DX: I21.4 Non-ST elevation (NSTEMI) myocardial infarction (principal); R07.89 Other chest pain; I10 Essential (primary) hypertension; E11.9 Type 2 diabetes mellitus without complications; E78.5 Hyperlipidemia, unspecified; F11.20 Opioid dependence, uncomplicated; J44.9 Chronic obstructive pulmonary disease, unspecified; F17.200 Nicotine dependence, unspecified, uncomplicated; E66.9 Obesity, unspecified; Z68.38 Body mass index [BMI] 38.0-38.9, adult; R51 Headache; Z78.0 Asymptomatic menopausal state; Z91.89 Other specified personal risk factors, not elsewhere classified; Z29.9 Encounter for prophylactic measures, unspecified
CPT/HCPCS: 36415; 71046-TC-FY; 80053; 80061; 82550; 82553; 82962; 83036; 83721; 83735; 83880; 84100; 84484; 85025; 85610; 85730; 93005; 93010; 93306-TC; 99285-25; G0378

== ENCOUNTER → 2019-06-01 | Outpatient (CLI) | payer OTHER | LOC: YHH 11:25 ==

== ENCOUNTER 2020-06-06 13:10 | Emergency (ER) | payer OTHER ==
[2020-06-06 13:18] VITALS: BP 128/73; PULSE 65; TEMP 98.3; BMI 33.0
--- NOTE | 2020-06-06 13:28 | PDOC ---
Rapid Medical Evaluation Chief Complaint: Burn Time Seen by Provider: 06/06/20 13:25 Medical Evaluation: Allergies Allergy/AdvReac Type Severity Reaction Status Date / Time No Known Allergies Allergy Verified 06/06/20 13:15 Vital Signs Temp Pulse Resp BP Pulse Ox 98.3 F 65 20 128/73 98 06/06/20 13:15 06/06/20 13:15 06/06/20 13:15 06/06/20 13:15 06/06/20 13:15 06/06/20 13:25 CC: burn from hot water to left foot, now area opened and concerned for infection Exam: noted open blister to dorsal aspect of left foot, surrounding skin intact Plan:fast track Discharge Disposition - Diagnosis Burn - Referrals - Patient Instructions - Post Discharge Activity
[2020-06-06] MEDS ORDERED: SILVER SULFADIAZINE 1% TOP CREAM 50 GM JAR TP ONE (13:44)
[2020-06-06] MEDS ORDERED: SILVER SULFADIAZINE 1% TOP CREAM 400 GM JAR TP SCH (13:45)
--- NOTE | 2020-06-06 13:52 | PDOC ---
History of Present Illness - General Chief Complaint: Burn Stated Complaint: BURN RT FT Time Seen by Provider: 06/06/20 13:25 - History of Present Illness Initial Comments: 06/06/20 13:48 60-year-old female with a past medical history of diabetes presents for evaluation of a burn. Patient states she was cooking fish oil splashed on her foot 2 days ago causing a burn she presents now to rule out infection Past History - Medical History Allergies/Adverse Reactions: Allergies Allergy/AdvReac Type Severity Reaction Status Date / Time No Known Allergies Allergy Verified 06/06/20 13:15 Home Medications: Ambulatory Orders Methadone [Dolophine -] 120 mg PO DAILY 12/30/18 Aspirin [ASA -] 81 mg PO DAILY tab.chew 01/01/19 Atorvastatin Ca [Lipitor] 80 mg PO HS tablet 01/01/19 Loratadine 10 mg PO PRN PRN 02/12/20 Nitroglycerin 0.4 mg SL PRN PRN 02/12/20 Silver Sulfadiazine [Silvadene] 400 gm TP BID #1 tube 06/06/20 COPD: Yes Diabetes: Yes HTN: Yes Hypercholesterolemia: Yes - Surgical History Appendectomy: Yes - Immunization History Immunization Up to Date: Yes - Psycho-Social/Smoking History Smoking History: Current every day smoker Have you smoked in the past 12 months: Yes Number of Cigarettes Smoked Daily: 5 Information on smoking cessation initiated: No 'Breaking Loose' booklet given: 12/31/18 - Substance Abuse Hx (Audit-C & DAST Scrn) How often the patient has a drink containing alcohol: Never Score: In Men: 4 or > Positive; In Women: 3 or > Positive: 0 Screen Result (Pos requires Nsg. Audit-10AR): Negative In the last yr the pt used illegal drug/Rx for NonMed reason: No Score: Yes response is considered Positive: 0 Screen Result (Positive result requires Nsg. DAST-10): Negative Review of Systems - Review of Systems Constitutional: No: Fever *Physical Exam - Vital Signs Last Vital Signs Temp Pulse Resp BP Pulse Ox 98.3 F 65 20 128/73 98 06/06/20 13:15 06/06/20 13:15 06/06/20 13:15 06/06/20 13:15 06/06/20 13:15 - Physical Exam 06/06/20 13:49 There is a partial-thickness burn on the dorsum of the right foot just proximal to the MTPJ. No surrounding erythema warmth tenderness or fluctuations. The burn blister has been popped no gross sensorimotor deficits neurovascular intact Medical Decision Making - Medical Decision Making 06/06/20 13:49 Silvadene topical [place] [facility] in 1 to 2 days for follow-up I have reviewed the pathophysiology with the patient. They are in agreement with the treatment plan all questions were answered to their satisfaction. Understanding for follow-up without fail was also conveyed to the patient. Again they are in agreement. Discharge - Discharge Information Problems reviewed: Yes Clinical Impression/Diagnosis: Burn Condition: Stable Disposition: HOME - Admission No - Additional Discharge Information Prescriptions: Silver Sulfadiazine [Silvadene] 400 gm TP BID #1 tube - Follow up/Referral Referrals: Bruce Vang [Primary Care Provider] - - Patient Discharge Instructions Additional Instructions: Please use the Silvadene topical twice a day as directed keep your foot elevated and return to the emergency room for further issues. Tylenol as directed for pain. Without fail follow-up with the [place] [facility]. You must call and make an appointment number [phone] - Post Discharge Activity
== END 2020-06-06 13:54 | disposition home or self-care (01) ==
LOC: JERFT 13:10
DX: T25.021A Burn of unspecified degree of right foot, initial encounter (principal)
CPT/HCPCS: 99283-25

== ENCOUNTER 2022-05-26 17:20 | Emergency (ER) | payer OTHER ==
[2022-05-26 17:36] VITALS: BP 135/71; PULSE 71; RESP 18; TEMP 98; BMI 35.1
[2022-05-26] MEDS ORDERED: DIPHTH,PERTUSS(ACELL),TET 0.5 ML DISP.SYRIN IM ONE ×2 (18:25→18:31)
[2022-05-26] MEDS ORDERED: KETOROLAC TROMETHAMINE 30 MG/1 ML VIAL ONE (18:38)
[2022-05-26] MEDS ORDERED: KETOROLAC TROMETHAMINE 30 MG/1 ML VIAL IM ONE (18:39)
== END 2022-05-26 19:19 | disposition home or self-care (01) ==
LOC: JERFT 17:20
PROC: 0HQGXZZ Repair Left Hand Skin, External Approach (ICD-10-PCS; principal; 2022-05-26)
PROC: 3E0234Z Introduction of Serum, Toxoid and Vaccine into Muscle, Percutaneous Approach (ICD-10-PCS; 2022-05-26)
PROC: 3E0233Z Introduction of Anti-inflammatory into Muscle, Percutaneous Approach (ICD-10-PCS; 2022-05-26)
DX: S61.216A Laceration without foreign body of right little finger without damage to nail, initial encounter (principal); W25.XXXA Contact with sharp glass, initial encounter
CPT/HCPCS: 12002-25; 73140-TC-RT-FY; 90471; 90715; 96372; 99284-25

== ENCOUNTER 2022-06-04 09:28 | Emergency (ER) | payer OTHER ==
[2022-06-04 09:44] VITALS: BP 141/78; PULSE 87; RESP 17; TEMP 98.4; BMI 34.4
== END 2022-06-04 10:03 | disposition home or self-care (01) ==
LOC: JERFT 09:28
DX: Z48.02 Encounter for removal of sutures (principal)
CPT/HCPCS: 99281-25